=== PATIENT | male | born 1990 | race Two or more races ===

== ENCOUNTER 2021-02-24 05:01 | Emergency (ER) | payer SELFPAY ==
[2021-02-24] MEDS ORDERED: IBUPROFEN800 MG PO ×2 (07:50→08:03)
[2021-02-24] MEDS ORDERED: NORCO 5-325 TA1 EACH PO (08:03)
== END 2021-02-24 08:10 | disposition home or self-care (01) ==
LOC: FER 05:01
DX: S93.402A Sprain of unspecified ligament of left ankle, initial encounter (principal); W19.XXXA Unspecified fall, initial encounter
CPT/HCPCS: 73590; 73610; 73630